=== PATIENT | female | born 1955 | race Caucasian/White ===

== ENCOUNTER 2025-09-06 09:19 | Emergency (ER) | payer MEDICARE, OTHER ==
[~2025-09-06] VITALS: Ht 152.4 cm; Wt 61.7 kg
--- OUTSIDE RECORDS SUMMARY | ~2025-09-06 | XMS | Continuity of Care Document ---
Demographics + + + | Address | [address] | | | [place] [address] | + + + | Preferred Language | Unknown | + + + | Marital Status | | + + + | Baptism Affiliation | Unknown | + + + | Race | White | + + + | Ethnic Group | Not or | + + + Author + + + | Author | [facility] | + + + | Organization | [facility] | + + + | Address | [address] | | | [place] [address] | + + + | Phone | | + + + Care Team Providers + + + + | Care [employer] Maker Name | Role | Phone | + + + + Unavailable | Unavailable | + + + + Allergies No information. Encounters No information. Functional Status No information. Immunizations No information. Medications + + + + | date | description | facility | + + + + | (no date) | CETIRIZINE HCL | [facility] | | | | [facility] | + + + + | (no date) | CYANOCOBALAMIN/FOLIC ACID | [facility] | | | | [facility] | + + + + | (no date) | MAGNESIUM OXIDE | [facility] | | | | [facility] | + + + + | (no date) | CHOLECALCIFEROL (VITAMIN | [facility] | | | D3) | [facility] | + + + + Problems No information. Procedures No information. Results/Labs No information. Social History +--------+ + + | date | description | facility | +--------+ + + Vital Signs No information."
[~2025-09-06 09:19] MED LIST: B COMPLETE1 EACH; MAGNESIUM400 MG PO; VITAMIN B12-FO1 EACH PO; VITAMIN D-32000 UNIT PO; ZYRTEC10 MG PO; [UNRECOGNIZED DRUG - OTHER]
[2025-09-06] MEDS ORDERED: DULERA 100 MCG/13 GM INH (09:37)
[2025-09-06 10:43] LABS: CORONAVIRUS COVID-19 AG NEGATIVE (NEGATIVE)
[2025-09-06] MEDS ORDERED: ONDANSETRON 4 MG TAB ODT SL ONE (10:45)
[2025-09-06] MEDS ORDERED: ALBUTEROL/IPRATROPIUM 3 ML NEB INH ONE (10:45)
[2025-09-06] MEDS ORDERED: IBUPROFEN 600 MG TAB PO ONE (10:45)
[2025-09-06 11:03] VITALS: BP 133/72
== END 2025-09-06 11:04 | disposition home or self-care (01) ==
LOC: ED 09:19
PROVIDERS: Emergency Medicine
DX: J10.1 Influenza due to other identified influenza virus with other respiratory manifestations (principal); J45.909 Unspecified asthma, uncomplicated; Z79.899 Other long term (current) drug therapy; Z88.1 Allergy status to other antibiotic agents; Z88.5 Allergy status to narcotic agent; Z88.8 Allergy status to other drugs, medicaments and biological substances
CPT/HCPCS: 36415; 71045; 94640; 99285-25; A9270